=== PATIENT | female | born 1930 | race Caucasian/White ===

== ENCOUNTER → 2016-11-12 | Outpatient (CLI) | payer MEDICARE, BC ==
[2015-03-02 06:40] VITALS: BP 144/87
[~2016-11-12] MED LIST: ALPRAZOLAM XR0.5 MG PO; CALCIUM + D 6001 TA1 PO; DOCUSATE SODIU100 M2 PO; ED PHENERG6 TAB/BOTT PO; ESCITALOPRAM10 MG PO; LORAZEPAM0.5 MG PO; MIRALAX17 GM PO; OMEGA 31000 MG PO; OMEPRAZOLE D/R20 MG PO; POLYETHYLENE GL1 POW PO; PROBIOTIC1 EAC2 PO; PROVENTIL0.09 MG/A1 IH; SERTRALINE25 MG PO; SYMBICORT1 AE3 IH; ULTRAM 50MG TAB50 MG PO; ULTRAM50 MG PO; VITAMIN D2400 IU PO; WARFARIN SOD5 MG PO; ZOFRAN 4MG4 MG/2 ML IV
== END ==
LOC: RAD 11-10 12:00
DX: R06.02 Shortness of breath (principal)